=== PATIENT | female | born 1965 | race Caucasian/White ===

== ENCOUNTER 2016-07-09 16:03 | Emergency (ER) | END 2016-07-09 19:06 | disposition home or self-care (01) | DX: H04.301 Unspecified dacryocystitis of right lacrimal passage (principal); E03.9 Hypothyroidism, unspecified; Z79.82 Long term (current) use of aspirin ==

== ENCOUNTER 2017-02-01 21:58 | Emergency (ER) | payer BC, OTHER ==
[~2017-02-01] VITALS: Wt 69.0 kg
[~2017-02-01 21:58] MED LIST: ASPI-664 PO; CIPR500T4 PO; CPR3OO3.5 RIGHT EYE; HYDR-906 PO; IBUP-1542 PO; LEVO125T71 PO; PHEN-538 PO; TRAM-40 PO
[2017-02-01] MEDS ORDERED: KETOROLAC 30 MG INJ IM STA (23:32)
--- NOTE | 2017-02-01 23:37 | ERD ---
ER Documentation Chief Complaint Date/Time DATE: 02/01/17 TIME: 23:35 Chief Complaint CEDILLO & sinus pain x 3 days HPI 51 year old female comes in with right sided headache for 3 days. Reports it is sharp, intermittent and goes across her forehead, cheek, jaw, and to the back of her scalp. It does not improve with motrin. She states she has had the same headache before. ROS All systems reviewed and are negative except as per history of present illness. Medications Home Meds Active Scripts Hydrocodone/Acetaminophen ([place] 5-325 Tablet) 1 Each Tablet, 1 EACH PO Q6, #12 TAB Prov:JAKE CAMPBELL PA-C 02/02/17 Naproxen* (Naprosyn*) 500 Mg Tablet, 500 MG PO BID, #30 TAB Prov:JAKE CAMPBELL PA-C 02/02/17 Ibuprofen* (Motrin*) 600 Mg Tab, 600 MG PO Q6H Y for PAIN, #15 TAB Prov:CHRIS STANTON MD 07/09/16 Ciprofloxacin Opht* (Ciloxan*) 0.3%-3.5 Opht Oint, 1 APPLIC RIGHT EYE TID for 7 Days, EA Prov:CHRIS STANTON MD 07/09/16 Hydrocodone/Acetaminophen ([place] 5-325 Tablet) 1 Each Tablet, 1 TAB PO Q6H Y for PAIN, #20 TAB Prov:SHEA COTTER NP 03/06/16 Ibuprofen* (Motrin*) 600 Mg Tab, 600 MG PO Q6H Y for PAIN AND OR ELEVATED TEMP, #30 TAB Prov:SHEA COTTER NP 03/06/16 Phenazopyridine Hcl* (Pyridium*) 200 Mg Tab, 200 MG PO TID Y for URINARY PAIN, # 6 TAB Prov:SHEA COTTER NP 03/06/16 Ciprofloxacin Hcl* (Ciprofloxacin Hcl*) 500 Mg Tablet, 500 MG PO BID for 10 Days , TAB Prov:SHEA COTTER NP 03/06/16 Aspirin* (Aspirin* EC) 81 Mg Tablet.dr, 81 MG PO DAILY, #30 TAB Prov:RADHA EPPS MD 10/25/15 Reported Medications Tramadol Hcl* (Ultram*) 50 Mg Tablet, 50 MG PO Q12 Y for PAIN, TAB 10/25/15 Levothyroxine Sodium* (Levoxyl*) 125 Mcg Tablet, 125 MCG PO BEFORE BREAKFAST, # 30 TAB 05/29/15 Allergies Allergies: Coded Allergies: No Known Drug Allergies (Verified Allergy, Unknown, 10/25/15) PMhx/Soc History of Surgery: Yes (cholecystectomy, tubal ligation) Anesthesia Reaction: No Hx Neurological Disorder: No Hx Respiratory Disorders: No Hx Cardiac Disorders: No Hx Psychiatric Problems: No Hx Miscellaneous Medical Probl: Yes (thyroid disorder) Hx Alcohol Use: No Hx Substance Use: No Hx Tobacco Use: No Physical Exam Vitals Vital Signs Date Time Temp Pulse Resp B/P Pulse Ox O2 Delivery O2 Flow Rate FiO2 02/02/17 00:52 98.4 56 18 135/84 100 Room Air 02/01/17 22:15 98.0 74 18 123/60 99 Physical Exam Const: well-appearing nontoxic Head: Atraumatic Eyes: Normal Conjunctiva ENT: Normal External Ears, Nose and Mouth. Neck: Full range of motion..~ No meningismus. Resp: Clear to auscultation bilaterally Cardio: Regular rate and rhythm, no murmurs Abd: Soft, non tender, non distended. Normal bowel sounds Skin: No petechiae or rashes Back: No midline or flank tenderness Ext: No cyanosis, or edema Neur: Awake and alert, speech and gait normal, CN II-XII grossly intact. Psych: Normal Mood and Affect Results 24 hrs Current Medications Medications (Trade) Dose Ordered Sig/Kimberli Route PRN Reason Start Time Stop Time Status Last Admin Dose Admin Ketorolac Tromethamine (Toradol) 30 mg ONCE STAT IM 02/01/17 23:32 02/01/17 23:33 DC 02/01/17 23:42 Procedures/MDM ED COURSE: patient was given toradol 30 mg IM. MDM: 55 year old female comes in with a headache,Differentials included tension headache, versus migraine headache, versus trigeminal neuralgia. Patient's symptoms appear to be recurring headache, she states that she has been seen by neurologist but reports that she did not receive any specific treatment and was told to take ibuprofen. Patient's headache appears to be across her forehead, face and her jaw, sharp, intermittent, possibly trigeminal neuralgia. She does not have any signs of meningitis, encephalitis, TIA, cranial hemorrhage. CT head imaging was deferred at this time given that the patient reports that this headache is recurring. She will be given information for follow-up with a neurologist, Dr. Hwang. Departure Diagnosis: Primary Impression: Headache Condition: JAKE Torres PA-C Feb 01, 2017 23:37
[2017-02-02] MEDS ORDERED: HYDR-906 PO (00:35)
[2017-02-02] MEDS ORDERED: NAPR-260 PO (00:35)
[2017-02-02 00:52] VITALS: BP 135/84; PULSE 56; RESP 18; TEMP 98.4
== END 2017-02-02 00:53 | disposition home or self-care (01) ==
LOC: FTE 21:58
DX: R51 Headache (principal); Z79.82 Long term (current) use of aspirin
CPT/HCPCS: 96372; J1885; Z7502

== ENCOUNTER 2017-05-29 00:33 | Emergency (ER) | payer BC, OTHER ==
[~2017-05-29] VITALS: Ht 162.6 cm; Wt 67.8 kg
[~2017-05-29 00:33] MED LIST changes: +NAPR-260 PO
[2017-05-29 00:47] VITALS: Ht 162.6 cm; Wt 67.8 kg
[2017-05-29 02:12] LABS: BASOPHILS % 0.2 % (0.0-2.0); EOSINOPHILS % 0.7 % (0.0-7.0); HEMATOCRIT 39.8 % (37.0-47.0); HEMOGLOBIN 12.8 g/dl (12.0-16.0); LYMPHOCYTES # 1.1 10^3/ul (0.8-2.9); MEAN CORPUSCULAR HEMOGLOBIN 28.8 pg (29.0-33.0); MEAN CORPUSCULAR HGB CONC 32.2 g/dl (32.0-37.0); MEAN CORPUSCULAR VOLUME 89.6 fl (82.0-101.0); MEAN PLATELET VOLUME 9.7 fl (7.4-10.4); MONOCYTE # 0.7 10^3/ul (0.3-0.9); MONOCYTES % 12.1 % (0.0-11.0); NEUTROPHIL # 3.7 10^3/ul (1.6-7.5); NEUTROPHILS % 66.6 % (39.0-77.0); PLATELET COUNT 316 10^3/UL (140-415); RED BLOOD COUNT 4.44 10^6/ul (4.20-5.40); RED CELL DISTRIBUTION WIDTH 13.6 % (11.5-14.5); WHITE BLOOD COUNT 5.6 10^3/ul (4.8-10.8)
--- NOTE | 2017-05-29 03:01 | RADRPT ---
PROCEDURE: XR Chest. CLINICAL INDICATION: Chest pain, cough TECHNIQUE: AP Portable chest. COMPARISON: CR CHEST 10/25/2015; CT 05/29/2015; CR CHEST 05/29/2015; CR CHEST 08/16/2012 FINDINGS: The cardiomediastinal silhouette is normal. The aorta is tortuous. No focal consolidation, pleural e ffusion or pneumothorax is seen. The osseous structures are intact. IMPRESSION: No radiographic evidence of acute cardiopulmonary disease. Physician Sonja Date Time Electronically viewed and signed by Michael Mayo Physician on 05/29/2017 03:00 CS/
[2017-05-29 03:48] LABS: BLOOD UREA NITROGEN 14 mg/dl (7-20); CARBON DIOXIDE 25 mmol/L (21-31); CHLORIDE 105 mmol/L (97-110); CREATININE 0.64 mg/dl (0.44-1.00); GLUCOSE 103 mg/dl (70-220); SODIUM 142 mmol/L (135-144)
[2017-05-29 03:50] LABS: ANION GAP 16 (8-16); POTASSIUM 3.9 mmol/L (3.5-5.1)
[2017-05-29 04:01] LABS: TROPONIN-I < 0.012 ng/ml (0.00-0.12)
[2017-05-29] MEDS ORDERED: LORA-186 PO (04:10)
[2017-05-29] MEDS ORDERED: ACET325T33 PO (04:10)
[2017-05-29] MEDS ORDERED: FLUT9.9S NASAL (04:10)
--- NOTE | 2017-05-29 05:42 | ERD ---
ER Documentation Chief Complaint Chief Complaint cough x 1 week, chest congestion, sore throat, back pain HPI 52-year-old female presents to the emergency department complaining of cough, congestion and sore throat for the past week. Patient states that she does have chest pain that is nonradiating and increased with cough. She denies any shortness of breath, fevers. She did not take any medications for this. She denies heart conditions. Patient states that she takes gabapentin for neuropathy ROS All systems reviewed and are negative except as per history of present illness. Medications Home Meds Active Scripts Fluticasone Propionate (Flonase Allergy Relief) 9.9 Ml [place].susp, 1 SPRAY NASAL BID, #1 BOTTLE TO EACH NOSTRIL Prov:NOHELIA CRABTREE PA-C 05/29/17 Acetaminophen* (Tylenol*) 325 Mg Tablet, 2 TAB PO Q4 Y for PAIN AND OR ELEVATED TEMP, #30 TAB Prov:NOHELIA CRABTREE PA-C 05/29/17 Loratadine* (Claritin*) 10 Mg Tablet, 10 MG PO DAILY, #30 TAB Prov:NOHELIA CRABTREE PA-C 05/29/17 Hydrocodone/Acetaminophen ([place] 5-325 Tablet) 1 Each Tablet, 1 EACH PO Q6, #12 TAB Prov:JAKE CAMPBELL PA-C 02/02/17 Naproxen* (Naprosyn*) 500 Mg Tablet, 500 MG PO BID, #30 TAB Prov:JAKE CAMPBELL PA-C 02/02/17 Ibuprofen* (Motrin*) 600 Mg Tab, 600 MG PO Q6H Y for PAIN, #15 TAB Prov:CHRIS STANTON MD 07/09/16 Ciprofloxacin Opht* (Ciloxan*) 0.3%-3.5 Opht Oint, 1 APPLIC RIGHT EYE TID for 7 Days, EA Prov:CHRIS STANTON MD 07/09/16 Hydrocodone/Acetaminophen ([place] 5-325 Tablet) 1 Each Tablet, 1 TAB PO Q6H Y for PAIN, #20 TAB Prov:SHEA COTTER NP 03/06/16 Ibuprofen* (Motrin*) 600 Mg Tab, 600 MG PO Q6H Y for PAIN AND OR ELEVATED TEMP, #30 TAB Prov:SHEA COTTER NP 03/06/16 Phenazopyridine Hcl* (Pyridium*) 200 Mg Tab, 200 MG PO TID Y for URINARY PAIN, # 6 TAB Prov:SHEA COTTER NP 03/06/16 Ciprofloxacin Hcl* (Ciprofloxacin Hcl*) 500 Mg Tablet, 500 MG PO BID for 10 Days , TAB Prov:SHEA COTTER NP 03/06/16 Aspirin* (Aspirin* EC) 81 Mg Tablet.dr, 81 MG PO DAILY, #30 TAB Prov:RADHA EPPS MD 10/25/15 Reported Medications Tramadol Hcl* (Ultram*) 50 Mg Tablet, 50 MG PO Q12 Y for PAIN, TAB 10/25/15 Levothyroxine Sodium* (Levoxyl*) 125 Mcg Tablet, 125 MCG PO BEFORE BREAKFAST, # 30 TAB 05/29/15 Allergies Allergies: Coded Allergies: No Known Drug Allergies (Verified Allergy, Unknown, 10/25/15) PMhx/Soc History of Surgery: Yes (hysterectomy, cholectystectomy) Anesthesia Reaction: No Hx Neurological Disorder: Yes (neuralgia) Hx Respiratory Disorders: No Hx Cardiac Disorders: No Hx Psychiatric Problems: No Hx Miscellaneous Medical Probl: Yes (hypothyroidism, H. Pylori) Hx Alcohol Use: No Hx Substance Use: No Hx Tobacco Use: No Smoking Status: Never smoker Physical Exam Vitals Vital Signs Date Time Temp Pulse Resp B/P Pulse Ox O2 Delivery O2 Flow Rate FiO2 05/29/17 00:47 98.7 69 20 124/80 100 Physical Exam Const: Well-developed well-nourished no acute distress Head: Atraumatic Eyes: Normal Conjunctiva ENT: Normal External Ears, Nose and Mouth. Neck: Full range of motion..~ No meningismus. Resp: Clear to auscultation bilaterally Cardio: Regular rate and rhythm, no murmurs Abd: Soft, non tender, non distended. Normal bowel sounds Skin: No petechiae or rashes Back: No midline or flank tenderness Ext: No cyanosis, or edema Neur: Awake and alert Psych: Normal Mood and Affect Result Diagram: 05/29/17 0145 05/29/17 0145 Results 24 hrs Laboratory Tests Test 05/29/17 01:45 White Blood Count 5.610^3/ul Red Blood Count 4.4410^6/ul Hemoglobin 12.8g/dl Hematocrit 39.8% Mean Corpuscular Volume 89.6fl Mean Corpuscular Hemoglobin 28.8pg Mean Corpuscular Hemoglobin Concent 32.2g/dl Red Cell Distribution Width 13.6% Platelet Count 57537^3/UL Mean Platelet Volume 9.7fl Neutrophils % 66.6% Lymphocytes % 20.0% Monocytes % 12.1% Eosinophils % 0.7% Basophils % 0.2% Nucleated Red Blood Cells % 0.0/100WBC Neutrophils # 3.710^3/ul Lymphocytes # 1.110^3/ul Monocytes # 0.710^3/ul Eosinophils # 0.010^3/ul Basophils # 0.010^3/ul Nucleated Red Blood Cells # 0.010^3/ul Sodium Level 142mmol/L Potassium Level 3.9mmol/L Chloride Level 105mmol/L Carbon Dioxide Level 25mmol/L Anion Gap 16 Blood Urea Nitrogen 14mg/dl Creatinine 0.64mg/dl Glucose Level 103mg/dl Calcium Level 9.0mg/dl Troponin I < 0.012ng/ml Procedures/MDM This is a well-appearing 52-year-old female presenting to the emergency department for evaluation of chest pain, congestion, sore throat for the past week. Patient appears well she does not seem to be in any distress. I doubt ACS or other acute cardiopulmonary conditions at this time. EKG did not show any evidence of STEMI. Chest x-ray did not show any evidence of infiltrates pneumothorax or pleural effusion. Lab work was drawn. CBC did not show any evidence of leukocytosis or anemia. CMP did not show any evidence of renal, liver, or electrolyte abnormalities. Trop negative. She does not have any risk factors. Patient is stable to be discharged home to follow-up with primary care physician. I have consulted my supervising physician Dr. Black who agreed this plan EKG: read and signed off by myself and Rate/Rhythm: Normal Sinus Rhythm 76 bpm QRS, ST, T-waves: No changes consistent w/ acute ischemia Impression: No evidence of ischemia or arrhythmia Departure Diagnosis: Primary Impression: URI (upper respiratory infection) Condition: Stable Patient Instructions: Preventing Common Respiratory Infections, Chest Pain, Noncardiac , Uri, Viral, No Abx (Adult) Additional Instructions: Visite a griggs mdico maana para un EXAMEN.Regrese a estas instalaciones si no se mejora julienne esperbamos o julienne le dijimos. Dortches toda la medicina lev y julienne se le indic. Regrese a estas instalaciones si no se mejora julienne esperbamos o julienne le dijimos. NOHELIA CRABTREE PA-C May 29, 2017 05:42
== END 2017-05-29 04:26 | disposition home or self-care (01) ==
LOC: FTE 00:33
DX: J06.9 Acute upper respiratory infection, unspecified (principal); E03.9 Hypothyroidism, unspecified; R06.02 Shortness of breath; Z79.82 Long term (current) use of aspirin
CPT/HCPCS: 71010; 80048; 84484; 85025; Z7502

== ENCOUNTER 2018-04-18 20:20 | Emergency (ER) | END 2018-04-18 23:08 | disposition home or self-care (01) ==

== ENCOUNTER 2018-06-28 10:35 | Emergency (ER) | payer OTHER ==
[~2018-06-28] VITALS: Ht 167.6 cm; Wt 65.7 kg
[~2018-06-28 10:35] MED LIST changes: +ACET325T33 PO; +ACET500C5 PO; -ASPI-664 PO; +ASPI-817 PO; +D-ME473S2 PO; +FLUT9.9S NASAL; +HYDR-4011 PO; -HYDR-906 PO; +LORA-186 PO; -NAPR-260 PO; +NAPR-985 PO; -TRAM-40 PO; +TRAM50TA PO
[2018-06-28 10:37] VITALS: BP 122/73; PULSE 71; RESP 20; Ht 167.6 cm; Wt 65.7 kg
[2018-06-28] MEDS ORDERED: IBUPROFEN 600 MG TAB PO ONE (11:30)
[2018-06-28] MEDS ORDERED: IBUP-1542 PO (13:06)
[2018-06-28] MEDS ORDERED: ACET500C5 PO (13:06)
[2018-06-28] MEDS ORDERED: SODI126M NASAL (13:06)
[2018-06-28] MEDS ORDERED: GUAI-637 PO (13:06)
--- NOTE | 2018-06-28 15:38 | ERD ---
ER Documentation Chief Complaint Chief Complaint Complains of a fever x 3 days HPI 53-year-old female with history of Graves' disease complaining of subjective fever times 3 days. Patient did not check her temperature at home, but reports feeling hot and cold. Patient also complaining of chest pain that radiates to the neck and bilateral arms. Reports nausea and one episode of vomiting yesterday. Patient also reports a cough for the last month. Patient describes chest pain as a dull pain, but worse with deep breath. Denies shortness of breath. Denies abdominal pain, diarrhea, or constipation. Patient did not take any medication for fever or pain at home. ROS All systems reviewed and are negative except as per history of present illness. Medications Home Meds Active Scripts Sodium Chloride (Saline Nasal Mist) 126 Ml Mist, 2 SPRAY NASAL Q2H PRN for NASAL CONGESTION, #1 BOTTLE Prov:ANNI EDWARDS [employer]ODUCTION SUPERVISOR 06/28/18 Guaifenesin* (Robitussin*) 100 Mg/5 Ml Syrup, 200 MG PO Q4H PRN for COUGH, #120 ML Prov:ANNI EDWARDS. [employer] SUPERVISOR 06/28/18 Acetaminophen* (Tylophen*) 500 Mg Capsule, 1 CAP PO Q6H PRN for PAIN AND OR ELEVATED TEMP, #20 CAP Prov:ANNI EDWARDS. [employer]ODUCTION SUPERVISOR 06/28/18 Ibuprofen* (Motrin*) 600 Mg Tab, 600 MG PO Q6H PRN for PAIN AND OR ELEVATED TEMP, #30 TAB Prov:ANNI EDWARDS. [employer]ODUCTION SUPERVISOR 06/28/18 Acetaminophen* (Tylophen*) 500 Mg Capsule, 1 CAP PO Q6H PRN for PAIN AND OR ELEVATED TEMP, #20 CAP Prov:LASHAWN ARCHER PA-C 04/18/18 Dextromethorphan Hb-Promethazine Hcl* (Promethazine DM* Syrup) 473 Ml Syrup, 5 ML PO Q6 PRN for COUGH, #100 ML Prov:LASHAWN ARCHER PA-C 04/18/18 Fluticasone Propionate (Flonase Allergy Relief) 9.9 Ml [place].susp, 1 SPRAY NASAL BID, #1 BOTTLE TO EACH NOSTRIL Prov:NOHELIA CRABTREE PA-C 05/29/17 Acetaminophen* (Tylenol*) 325 Mg Tablet, 2 TAB PO Q4 PRN for PAIN AND OR ELEVATED TEMP, #30 TAB Prov:NOHELIA CRABTREE PA-C 05/29/17 Loratadine* (Claritin*) 10 Mg Tablet, 10 MG PO DAILY, #30 TAB Prov:NOHELIA CRABTREE PA-C 05/29/17 Hydrocodone/Acetaminophen ([place] 5-325 Tablet) 1 Each Tablet, 1 EACH PO Q6, #12 TAB Prov:JAKE CAMPBELL PA-C 02/02/17 Naproxen* (Naprosyn*) 500 Mg Tablet, 500 MG PO BID, #30 TAB Prov:JAKE CAMPBELL PA-C 02/02/17 Ibuprofen* (Motrin*) 600 Mg Tab, 600 MG PO Q6H PRN for PAIN, #15 TAB Prov:CHRIS STANTON MD 07/09/16 Ciprofloxacin Opht* (Ciloxan*) 0.3%-3.5 Opht Oint, 1 APPLIC RIGHT EYE TID for 7 Days, EA Prov:CHRIS STANTON MD 07/09/16 Hydrocodone/Acetaminophen ([place] 5-325 Tablet) 1 Each Tablet, 1 TAB PO Q6H PRN for PAIN, #20 TAB Prov:SHEA COTTER NP 03/06/16 Ibuprofen* (Motrin*) 600 Mg Tab, 600 MG PO Q6H PRN for PAIN AND OR ELEVATED TEMP, #30 TAB Prov:SHEA COTTER NP 03/06/16 Phenazopyridine Hcl* (Pyridium*) 200 Mg Tab, 200 MG PO TID PRN for URINARY PAIN, #6 TAB Prov:SHEA COTTER NP 03/06/16 Ciprofloxacin Hcl* (Ciprofloxacin Hcl*) 500 Mg Tablet, 500 MG PO BID for 10 Days, TAB Prov:SHEA COTTER NP 03/06/16 Aspirin* (Aspirin* EC) 81 Mg Tablet.dr, 81 MG PO DAILY, #30 TAB Prov:RADHA EPPS MD 10/25/15 Reported Medications Tramadol Hcl* (Ultram*) 50 Mg Tablet, 50 MG PO Q12 PRN for PAIN, TAB 10/25/15 Levothyroxine Sodium* (Levoxyl*) 125 Mcg Tablet, 125 MCG PO BEFORE BREAKFAST, #30 TAB 05/29/15 Allergies Allergies: Coded Allergies: No Known Drug Allergies (Verified Allergy, Unknown, 06/28/18) PMhx/Soc History of Surgery: Yes (hysterectomy, cholecystectomy) Anesthesia Reaction: No Hx Neurological Disorder: Yes (neuralgia) Hx Respiratory Disorders: No Hx Cardiac Disorders: No Hx Psychiatric Problems: No Hx Miscellaneous Medical Probl: Yes (hypothyroidism, H. Pylori) Hx Alcohol Use: No Hx Substance Use: No Hx Tobacco Use: No Physical Exam Vitals Vital Signs Date Temp Pulse Resp B/P (MAP) Pulse Ox O2 O2 Flow FiO2 Time Delivery Rate 06/28/18 98.7 71 20 122/73 98 10:37 (89) Physical Exam General: Well-developed, well-nourished, conscious and coherent, in no distress Skin: Warm and dry without rash, good texture and turgor Head: Normocephalic without evidence of trauma Eyes: Sclera and conjunctivae normal Nose/Face: Nasal congestion Mouth/throat: Mucous membranes are moist. Posterior pharynx clear without erythema or exudates Neck: Supple without meningismus or adenopathy. Carotids are equal. Trachea midline. No bruits or JVD Chest: Normal AP diameter. Good expansion without retractions. Nontender. Lungs are clear to auscultate bilaterally with good tidal volume Heart: Regular rate and rhythm. No murmur, rub, or gallops heard Abdomen: Soft and nontender without masses, guarding, or rebound. Bowel sounds are active. No hepatosplenomegaly Extremities: Full range of motion. Good strength bilaterally. No erythema, ecchymosis, or edema. Peripheral pulses are intact. Sensation intact Neuro: Alert and oriented 4, GCS 15. Result Diagram: 06/28/18 1134 06/28/18 1134 Results 24 hrs Laboratory Tests Test 06/28/18 11:34 White Blood Count 8.3 10^3/ul Red Blood Count 4.47 10^6/ul Hemoglobin 12.8 g/dl Hematocrit 40.0 % Mean Corpuscular Volume 89.5 fl Mean Corpuscular Hemoglobin 28.6 pg Mean Corpuscular Hemoglobin Concent 32.0 g/dl Red Cell Distribution Width 13.9 % Platelet Count 333 10^3/UL Mean Platelet Volume 9.1 fl Immature Granulocytes % 0.100 % Neutrophils % 71.6 % Lymphocytes % 19.3 % Monocytes % 8.4 % Eosinophils % 0.5 % Basophils % 0.1 % Nucleated Red Blood Cells % 0.0 /100WBC Immature Granulocytes # 0.010 10^3/ul Neutrophils # 5.9 10^3/ul Lymphocytes # 1.6 10^3/ul Monocytes # 0.7 10^3/ul Eosinophils # 0.0 10^3/ul Basophils # 0.0 10^3/ul Nucleated Red Blood Cells # 0.0 10^3/ul Sodium Level 140 mmol/L Potassium Level 3.7 mmol/L Chloride Level 102 mmol/L Carbon Dioxide Level 30 mmol/L Anion Gap 8 Blood Urea Nitrogen 16 mg/dl Creatinine 0.67 mg/dl Est Glomerular Filtrat Rate mL/min > 60 mL/min Glucose Level 100 mg/dl Calcium Level 9.0 mg/dl Troponin I < 0.012 ng/ml Current Medications Medications Dose Sig/Kimberli Start Time Status Last (Trade) Ordered Route PRN Stop Time Admin Dose Reason Admin Ibuprofen 600 mg ONCE ONCE 06/28/18 DC 06/28/18 (Motrin) PO 11:30 11:31 06/28/18 11:31 Procedures/MDM 53-year-old female with history of Graves' disease presented to ED with subjective fever and chest pain. Cardiac workup obtained to rule out ACS. CBC: no e/o of systemic infection or severe anemia BMP: no e/o severe acidosis, alkalosis, renal failure, diabetic ketoacidosis, Troponin: no e/o acute ischemia Urine: no e/o acute infection or hematuria Chest X-ray 1V Interpreted by me: Soft Tissue: No acute abnormalities Bones: No acute abnormalities Mediastinum/Cardiac Silhouette/Lungs: No acute abnormalities EKG: Rate/Rhythm: Normal Sinus Rhythm, rate 60. QRS, ST, T-waves: No changes consistent w/ acute ischemia [place]: Right axis Impression: No evidence of ischemia or arrhythmia Patient does not appear to have ACS. Patient does have reproducible chest wall tenderness. Likely her chest wall pain secondary to coughing. I suspect that her symptoms are due to a viral illness. Patient does not appear to be septic. Patient appears well, stable for discharge and outpatient management. Medical decision making shared with patient and family. Education provided to patient and family. Patient and family expressed understanding of the plan. Medications on discharge: Tylenol, ibuprofen, saline nasal mist, Robitussin. Follow-up: Primary care provider in 2-3 days or return to ED if worse. Disclaimer: Inadvertent spelling and grammatical errors are likely due to EHR/dictation software use and do not reflect on the overall quality of patient care. Also, please note that the electronic time recorded on this note does not necessarily reflect the actual time of the patient encounter. Departure Diagnosis: Primary Impression: Viral syndrome Condition: Stable Patient Instructions: Viral Syndrome (Adult) [facility] Usted se ramos hecho un examen mdico de control que le indica que no est en jai condicin que requiera tratamiento urgente en el Departamento de Emergencia. Un estudio ms profundo y el tratamiento de griggs condicin pueden esperar sin ningn riesgo hasta que usted sea atendida/o en el consultorio de griggs mdico o jai clnica. Es responsabilidad suya arreglar jai richard para el seguimiento del ty. MANEJO DE CONDICIONES NO URGENTES EN EL FUTURO 1) Si usted tiene un mdico de atencin primaria: Usted debera llamar a griggs mdico de atencin primaria antes de venir al departamento de emergencia. Despus de las horas de consultorio, griggs doctor o griggs asociado/a est disponible por telfono. El mdico o enfermero de cheri en el servicio telefnico puede asesorarle por parish medio para atender el problema, o ty contrario se puede programar jai richard. 2) Si usted no tiene un mdico de atencin primaria: Llame al mdico o clnica de referencia que aparece abajo karina las horas de consultorio para hacer jai richard para que le vean. CLINICAS: [facility] [phone] [address] [facility] 499 [phone] [address] [facility] [phone] [facility] [phone] [facility] [phone] [address] [facility]. [phone] [address] Additional Instructions: Llame al doctor MAANA y brent jai RICHARD PARA DENTRO DE 2-3 ELLIS.Dgale a la secre taria que nosotros le instruimos hacer esta richard.Avise o llame si griggs condicin se empeora antes de la richard. Regresa aqui si peor o no mejor. ANNI EDWARDS. BRIANA Jun 28, 2018 15:38
== END 2018-06-28 13:38 | disposition home or self-care (01) ==
LOC: FTE 10:35
DX: B34.9 Viral infection, unspecified (principal); E03.9 Hypothyroidism, unspecified; R40.2412 Glasgow coma scale score 13-15, at arrival to emergency department; R07.9 Chest pain, unspecified; Z79.82 Long term (current) use of aspirin
CPT/HCPCS: 36415; 71045; 80048; 84484; 85025; 93005; Z7502; Z7610

== ENCOUNTER 2018-07-29 06:24 | Day surgery (SDC) | payer OTHER ==
[2018-07-29] VITALS (13 sets, daily range): BP systolic 112–143; BP diastolic 75–90; PULSE 58–78; RESP 14–20; Ht 160 cm; Wt 66.7 kg
[~2018-07-29] VITALS: Ht 160 cm; Wt 66.7 kg
[~2018-07-29 06:24] MED LIST changes: +GUAI-637 PO; +SODI126M NASAL
--- NOTE | 2018-07-29 07:04 | HPN ---
Date/Time of Note Date/Time of Note DATE: 07/29/18 TIME: 07:04 Interval H&P Admission Note Pt. seen H&P reviewed: No system changes MARTÍN GRAMAJO MD Jul 29, 2018 07:04
[2018-07-29] MEDS ORDERED: LEVO88TA42 PO (07:17)
--- NOTE | 2018-07-29 09:39 | SIPON ---
Date/Time of Note Date/Time of Note DATE: 07/29/18 TIME: 09:38 Operative Report Preoperative Diagnosis 1. Deviated septum 2. Left inferior turbinate hypertrophy Postoperative Diagnosis Same Operation/Procedure Performed 1. Septoplasty 2. Left inferior turbinate reduction Surgeon see signature line corporate law assistant None Anesthesia: general Estimated blood loss: minimal Transfusion Required none Specimen Septum Grafts/Implants none Complications none MARTÍN GRAMAJO MD Jul 29, 2018 09:39
--- NOTE | 2018-07-29 09:42 | OPR ---
Date/Time of Note Date/Time of Note DATE: 07/29/18 TIME: 09:39 Operative Report Procedure Date: Jul 29, 2018 Preoperative Diagnosis 1. Deviated septum 2. Left inferior turbinate hypertrophy Postoperative Diagnosis Same Operation/Procedure Performed 1. Septoplasty 2. Left inferior turbinate reduction Surgeon see signature line Mycology Teacher None Anesthesia Type: general Estimated Blood Loss: minimal Transfusion none Specimen Septum Grafts/Implants none Complications none Pt Condition Post Procedure: stable Disposition: PACU Indications The patient is a 53-year-old female with a history of nasal airway obstruction that has been refractory to medical management. The risks, benefits, and alternatives of surgery were discussed. The risks included but not limited to bleeding, infection, scar, no improvement in symptoms, septal perforation, numbness to the upper teeth, and need for revision surgery. She understood this and signed consent. Procedure Description After informed consent was obtained, the patient was brought back to operating suite. She was intubated by anesthesia and sedated. The eyes were protected and a head drape was placed. Romario-Synephrine soaked cottonoids were inserted to the nasal cavities and left for several minutes and then removed. 1% lidocaine with epinephrine was injected into the nasal septum and left inferior turbinate. A 15 blade was used to make a left hemitransfixion incision. Mucoperichondrial flap was elevated. The 40 cartilaginous junction was disarticulated with a Wilson elevator. Deviated portions of quadrangular cartilage and vomer bone were removed with the Rocio forceps. Care was taken to ensure that a 1-1/2 cm dorsal and caudal strut was left. The hemitransfixion incision was then closed with interrupted 4-0 chromic suture. A stab incision was then made under the head of the left inferior turbinate. A mucoperiosteal flap was elevated. Turbinate bone was removed with the Rocio forceps and bipolar cautery was applied were needed. Silastic Leon splints coated in antibiotic ointment were placed bilaterally and secured with a 3-0 Prolene suture. MARTÍN GRAMAJO MD Jul 29, 2018 09:42
[2018-07-29] MEDS ORDERED: OXYMETAZOLINE 0.05% 15 ML NAS SPRAY NASAL ONE (10:20)
[2018-07-29] MEDS ORDERED: LIDOCAINE 1%/EPI (1:100,000) (MDV) 20 ML ONE (10:20)
[2018-07-29] MEDS ORDERED: NEOMYC/POLYMYX/BACIT 30 GM OINT ONE (10:20)
--- NOTE | 2018-07-29 10:27 | PREAC ---
Date/Time of Note Date/Time of Note DATE: 07/29/18 TIME: 10:25 Anesthesia Eval and Record Evaluation Time Pre-Procedure Interview DATE: 07/29/18 TIME: 10:25 Age 53 Sex female NPO: 8 hrs Preoperative diagnosis Septum deviation Planned procedure Septoplasty Past Medical History Past Medical History: Includes Cardio: HTN, Dyslipidemia Endo: Hypothyroid Surgery & Anesthesia Issues No known issue Meds Anticoagulation: No Beta Jena within 24 hr: No Reason Beta Jena not given: Pt. not on B-Jena Reported Medications Levothyroxine Sodium* (Levoxyl*) 88 Mcg Tablet, 88 MCG PO BEFORE BREAKFAST, #30 TAB 07/29/18 Discontinued Reported Medications Tramadol Hcl* (Ultram*) 50 Mg Tablet, 50 MG PO Q12 PRN for PAIN, TAB 10/25/15 Levothyroxine Sodium* (Levoxyl*) 125 Mcg Tablet, 125 MCG PO BEFORE BREAKFAST, #30 TAB 05/29/15 Discontinued Scripts Sodium Chloride (Saline Nasal Mist) 126 Ml Mist, 2 SPRAY NASAL Q2H PRN for NASAL CONGESTION, #1 BOTTLE Prov:ANNI EDWARDS. SPIRITUAL ADVISOR 06/28/18 Guaifenesin* (Robitussin*) 100 Mg/5 Ml Syrup, 200 MG PO Q4H PRN for COUGH, #120 ML Prov:ANNI EDWARDS. SPIRITUAL ADVISOR 06/28/18 Acetaminophen* (Tylophen*) 500 Mg Capsule, 1 CAP PO Q6H PRN for PAIN AND OR ELEVATED TEMP, #20 CAP Prov:ANNI EDWARDS. SPIRITUAL ADVISOR 06/28/18 Ibuprofen* (Motrin*) 600 Mg Tab, 600 MG PO Q6H PRN for PAIN AND OR ELEVATED TEMP, #30 TAB Prov:ANNI EDWARDS. SPIRITUAL ADVISOR 06/28/18 Acetaminophen* (Tylophen*) 500 Mg Capsule, 1 CAP PO Q6H PRN for PAIN AND OR ELEVATED TEMP, #20 CAP Prov:LASHAWN ARCHER PA-C 04/18/18 Dextromethorphan Hb-Promethazine Hcl* (Promethazine DM* Syrup) 473 Ml Syrup, 5 ML PO Q6 PRN for COUGH, #100 ML Prov:LASHAWN ARCHER PA-C 04/18/18 Fluticasone Propionate (Flonase Allergy Relief) 9.9 Ml [place].susp, 1 SPRAY NASAL BID, #1 BOTTLE TO EACH NOSTRIL Prov:NOHELIA CRABTREE PA-C 05/29/17 Acetaminophen* (Tylenol*) 325 Mg Tablet, 2 TAB PO Q4 PRN for PAIN AND OR ELEVATED TEMP, #30 TAB Prov:NOHELIA CRABTREE PA-C 05/29/17 Loratadine* (Claritin*) 10 Mg Tablet, 10 MG PO DAILY, #30 TAB Prov:NOHELIA CRABTREE PA-C 05/29/17 Hydrocodone/Acetaminophen ([place] 5-325 Tablet) 1 Each Tablet, 1 EACH PO Q6, #12 TAB Prov:JAKE CAMPBELL PA-C 02/02/17 Naproxen* (Naprosyn*) 500 Mg Tablet, 500 MG PO BID, #30 TAB Prov:JAKE CAMPBELL PA-C 02/02/17 Ibuprofen* (Motrin*) 600 Mg Tab, 600 MG PO Q6H PRN for PAIN, #15 TAB Prov:CHRIS STANTON MD 07/09/16 Ciprofloxacin Opht* (Ciloxan*) 0.3%-3.5 Opht Oint, 1 APPLIC RIGHT EYE TID for 7 Days, EA Prov:CHRIS STANTON MD 07/09/16 Hydrocodone/Acetaminophen ([place] 5-325 Tablet) 1 Each Tablet, 1 TAB PO Q6H PRN for PAIN, #20 TAB Prov:SHEA COTTER NP 03/06/16 Ibuprofen* (Motrin*) 600 Mg Tab, 600 MG PO Q6H PRN for PAIN AND OR ELEVATED TEMP, #30 TAB Prov:SHEA COTTER NP 03/06/16 Phenazopyridine Hcl* (Pyridium*) 200 Mg Tab, 200 MG PO TID PRN for URINARY PAIN, #6 TAB Prov:SHEA COTTER NP 03/06/16 Ciprofloxacin Hcl* (Ciprofloxacin Hcl*) 500 Mg Tablet, 500 MG PO BID for 10 Days, TAB Prov:SHEA COTTER NP 03/06/16 Aspirin* (Aspirin* EC) 81 Mg Tablet.dr, 81 MG PO DAILY, #30 TAB Prov:RADHA EPPS MD 10/25/15 Meds reviewed: Yes Allergies Coded Allergies: No Known Drug Allergies (Verified Allergy, Unknown, 07/29/18) Allergies Reviewed: Yes Labs/Studies Labs Reviewed: Reviewed by anesthesiologist test: Negative Studies: ECG Pre-procedure Exam Last vitals Vital Signs Date Temp Pulse Resp B/P (MAP) Pulse Ox O2 O2 Flow FiO2 Time Delivery Rate 07/29/18 97.6 69 18 128/76 96 Room Air 07:55 (93) Airway: Adequate mouth opening, Adequate thyromental dist Mallampati: Mallampati II Teeth: Normal Lung: Normal Heart: Normal ASA Physical Status ASA physical status: 3 Emergency: None Planned Anesthetic General/MAC: ETT Planned Pain Management Parenteral pain med Pre-operative Attestations Prior to commencing anesthesia and surgery, the patient was re-evaluated, there was verification of: *The patient's identity *The results of appropriate recent lab work and preoperative vital signs *The above evaluation not changing prior to induction *Anesthetic plan, risk benefits, alternative and complications discussed with p atient/family; questions answered; patient/family understands, accepts and wishes to proceed. KALLIE YOUNGBLOOD MD Jul 29, 2018 10:27
[2018-07-29] MEDS ORDERED: MIDAZOLAM 1 MG/ML 2 ML INJ ONE (10:28)
[2018-07-29] MEDS ORDERED: FENTAnyl 50 MCG/ML VIAL ONE (10:28)
[2018-07-29] MEDS ORDERED: NEOSTIGMINE 10 MG INJ ONE (10:57)
[2018-07-29] MEDS ORDERED: CEFAZOLIN 1 GM INJ ONE (10:57)
[2018-07-29] MEDS ORDERED: PROPOFOL 20 ML ONE (10:57)
[2018-07-29] MEDS ORDERED: GLYCOPYRROLATE 0.4 MG INJ ONE (10:57)
[2018-07-29] MEDS ORDERED: LIDOCAINE 2% (SDV) 5 ML INJ ONE (10:57)
[2018-07-29] MEDS ORDERED: ROCURONIUM 50 MG INJ ONE (10:57)
[2018-07-29] MEDS ORDERED: ONDANSETRON 4 MG INJ ONE (10:58)
--- NOTE | 2018-07-29 11:17 | PAC ---
Date/Time of Note Date/Time of Note DATE: 07/29/18 TIME: 11:16 Post-Anesthesia Notes Post-Anesthesia Note Last documented vital signs Vital Signs Date Temp Pulse Resp B/P (MAP) Pulse Ox O2 O2 Flow FiO2 Time Delivery Rate 07/29/18 97.6 69 18 128/76 96 Room Air 07:55 (93) Activity: WNL Respiratory function: WNL Cardiovascular function: WNL Mental status: Baseline Pain reasonably controlled: Yes Hydration appropriate: Yes Nausea/Vomiting absent: Yes Comments 128/67, P:84, spo2:100%, T:98,8 KALLIE YOUNGBLOOD MD Jul 29, 2018 11:17
[2018-07-29] MEDS ORDERED: FENTAnyl 50 MCG/ML VIAL IV PRN (11:30)
[2018-07-29] MEDS ORDERED: DIPHENHYDRAMINE 50 MG INJ IV PRN (11:30)
[2018-07-29] MEDS ORDERED: METOCLOPRAMIDE 10 MG INJ IV PRN (11:30)
[2018-07-29] MEDS ORDERED: ONDANSETRON 4 MG INJ IV PRN (11:30)
[2018-07-29] MEDS ORDERED: MEPERIDINE 25 MG INJ IV PRN (11:30)
[2018-07-29] MEDS ORDERED: OXYCODONE/ACETAMINOPHEN (5/325) TAB PO ONE (12:30)
== END 2018-07-29 14:48 | disposition home or self-care (01) ==
LOC: SDS 06:24
PROVIDERS: ATTEND Otolaryngology
DX: J34.2 Deviated nasal septum (principal); J34.3 Hypertrophy of nasal turbinates; I10 Essential (primary) hypertension; E78.5 Hyperlipidemia, unspecified; E03.9 Hypothyroidism, unspecified
CPT/HCPCS: 30140; 30520; J0690; J2175; J2250; J2405; J2710; J3010; Z7610; 88300